=== PATIENT | male | born 1990 | race Caucasian/White ===

== ENCOUNTER 2017-08-22 21:32 | Inpatient (IN) | END 2017-08-23 18:15 | disposition home or self-care (01) | DRG 395 ==

== ENCOUNTER 2018-07-04 00:02 | Inpatient (IN) | payer OTHER ==
[2018-07-04] VITALS (27 sets, daily range): BP systolic 98–137; BP diastolic 41–70; PULSE 72–108; RESP 14–20; Ht 180.3 cm; Wt 104.5 kg
[~2018-07-04] VITALS: Ht 180.3 cm; Wt 104.5 kg
[~2018-07-04 00:02] MED LIST: AMOX1TAB10 PO; DICY10CA40 PO; HYDR-4011 PO; ONDA4SOL2 PO
[2018-07-04] MEDS ORDERED: SOD CHLORIDE 0.9% 1,000 ML IV STA (00:44)
[2018-07-04] MEDS ORDERED: ONDANSETRON 4 MG INJ IV STA (00:44)
[2018-07-04] MEDS ORDERED: morphine 4 MG/ML VIAL IV STA (00:44)
[2018-07-04] MEDS ORDERED: SOD CHLORIDE 0.9% 1,000 ML IV SCH (02:04)
--- NOTE | 2018-07-04 02:22 | ERD ---
ER Documentation Chief Complaint Chief Complaint Lower R AP X 12 hrs HPI This is a 27-year-old male who presents to the emergency room for evaluation of abdominal pain. The patient localizes the abdominal pain to the right lower margarita drant and states that is been present for approximately 8 hours. He describes it as a sharp pain associated with mild nausea and 2 episodes of nonbilious, nonbloody vomiting. The patient states that he was diagnosed with appendicitis in August 2017 and was admitted to the hospital however he states he was treated "medically" and did not have surgery. The patient came to the ER today for evaluation of his symptoms and does state it feels similar to when he was here in August ROS All systems reviewed and are negative except as per history of present illness. Medications Home Meds Active Scripts Ondansetron HCl (Zofran) 4 Mg/5 Ml Solution, 4 MG PO Q6 PRN for NAUSEA, #30 Prov:REYES SALCIDO 08/23/17 Amoxicillin/Potassium Clav (Amox-Clav 875-125 mg Tablet) 875-125 mg Tab, 1 TAB PO BID, #20 TAB Prov:REYES SALCIDO 08/23/17 Hydrocodone/Acetaminophen ([place] 5-325 Tablet) 1 Each Tablet, 1 EACH PO Q4 PRN for PAIN, #20 TAB Prov:REYES SALCIDO 08/23/17 Dicyclomine HCl (Dicyclomine HCl) 10 Mg Capsule, 10 MG PO QID, #20 CAP Prov:OLY AMEZCUA 04/26/15 Allergies Allergies: Coded Allergies: No Known Allergy (Unverified , 04/26/15) PMhx/Soc Medical and Surgical Hx: pt denies Medical Hx, pt denies Surgical Hx Anesthesia Reaction: No Hx Neurological Disorder: No Hx Respiratory Disorders: No Hx Cardiac Disorders: No Hx Psychiatric Problems: No Hx Alcohol Use: Yes (occassional) Hx Substance Use: No Hx Tobacco Use: No Smoking Status: Never smoker Physical Exam Vitals Vital Signs Date Temp Pulse Resp B/P (MAP) Pulse Ox O2 O2 Flow FiO2 Time Delivery Rate 07/04/18 98.9 96 18 136/78 100 Room Air 00:59 (97) 07/04/18 100.3 109 18 142/80 96 00:09 (100) Physical Exam INITIAL VITAL SIGNS: Reviewed by me GENERAL: The patient is well developed and appropriate for usual state of health in no apparent distress HEENT: Pupils equal, round, and reactive to light. EOMI. There is no scleral icterus. NECK: C-spine is soft and supple, there is no meningismus. There is no cervical lymphadenopathy. LUNGS: Clear to auscultation bilaterally. There are no rales, wheezes or rhonchi. HEART: Regular rate and rhythm, no murmurs, clicks, rubs or gallops. ABDOMEN: Positive McBurney point tenderness, guarding in the right lower q uadrant, positive Rovsing sign, bowel sounds in all 4 quadrants EXTREMITIES: There is no peripheral cyanosis or edema. No focal swelling or erythema. NEUROLOGICAL: The patient moves all four extremities with 5/5 strength. Cranial nerves II - XII are intact. Normal gait. Alert and oriented SKIN: There is no apparent rash or petechiae. HEME/LYMPHATIC: There is no evidence of excessive bruising or lymphedema. PSYCHIATRIC: The patient does not appear anxious or depressed. Result Diagram: 07/04/18 0055 07/04/18 0055 Results 24 hrs Laboratory Tests Test 07/04/18 00:55 White Blood Count 15.5 10^3/ul Red Blood Count 5.58 10^6/ul Hemoglobin 16.1 g/dl Hematocrit 47.5 % Mean Corpuscular Volume 85.1 fl Mean Corpuscular Hemoglobin 28.9 pg Mean Corpuscular Hemoglobin Concent 33.9 g/dl Red Cell Distribution Width 12.1 % Platelet Count 292 10^3/UL Mean Platelet Volume 10.4 fl Immature Granulocytes % 0.800 % Neutrophils % 74.5 % Lymphocytes % 16.2 % Monocytes % 6.3 % Eosinophils % 1.7 % Basophils % 0.5 % Nucleated Red Blood Cells % 0.0 /100WBC Immature Granulocytes # 0.130 10^3/ul Neutrophils # 11.5 10^3/ul Lymphocytes # 2.5 10^3/ul Monocytes # 1.0 10^3/ul Eosinophils # 0.3 10^3/ul Basophils # 0.1 10^3/ul Nucleated Red Blood Cells # 0.0 10^3/ul Urine Color YELLOW Urine Clarity CLEAR Urine pH 5.0 Urine Specific [place] 1.024 Urine Ketones NEGATIVE mg/dL Urine Nitrite NEGATIVE mg/dL Urine Bilirubin NEGATIVE mg/dL Urine Urobilinogen NEGATIVE mg/dL Urine Leukocyte Esterase NEGATIVE [place]/ul Urine Hemoglobin NEGATIVE mg/dL Urine Glucose NEGATIVE mg/dL Urine Total Protein NEGATIVE mg/dl Sodium Level 142 mmol/L Potassium Level 4.2 mmol/L Chloride Level 103 mmol/L Carbon Dioxide Level 24 mmol/L Anion Gap 15 Blood Urea Nitrogen 16 mg/dl Creatinine 1.06 mg/dl Est Glomerular Filtrat Rate mL/min > 60 mL/min Glucose Level 98 mg/dl Lactic Acid Level 2.0 mmol/L Calcium Level 10.0 mg/dl Total Bilirubin 0.4 mg/dl Direct Bilirubin 0.00 mg/dl Indirect Bilirubin 0.4 mg/dl Aspartate Amino Transf (AST/SGOT) 45 IU/L Alanine Aminotransferase (ALT/SGPT) 105 IU/L Alkaline Phosphatase 64 IU/L Total Protein 8.4 g/dl Albumin 4.9 g/dl Globulin 3.50 g/dl Albumin/Globulin Ratio 1.40 Lipase 126 U/L Current Medications Medications Dose Sig/Jaimie Start Time Status Last (Trade) Ordered Route PRN Stop Time Admin Dose Reason Admin Sodium 1,000 ml @ Q1H STAT 07/04/18 DC 07/04/18 Chloride 1,000 mls/hr IV 00:44 00:57 07/04/18 01:43 Morphine 4 mg ONCE STAT 07/04/18 DC 07/04/18 Sulfate IV 00:44 00:57 (morphine) 07/04/18 00:45 Ondansetron 4 mg ONCE STAT 07/04/18 DC 07/04/18 HCl (Zofran IV 00:44 00:57 Inj) 07/04/18 00:45 Sodium 1,000 ml @ [id number] IV 07/04/18 Chloride 80 mls/hr 02:04 07/04/18 14:33 Ondansetron 4 mg BRIDGE ORDER 07/04/18 HCl (Zofran PRN IV 02:30 Inj) NAUSEA/VOMITI 07/05/18 02:29 NG 650 mg ER BRIDGE 07/04/18 Acetaminophen PRN PO 02:30 (Tylenol .MILD PAIN 07/05/18 02:29 Tab) 1-3 OR TEMP Sodium 1,000 ml @ Q10H IV 07/04/18 Chloride 100 mls/hr 02:01 IV Flush 3 ml PER 07/04/18 (NS 3 ml) PROTOCOL IV 02:30 Ondansetron 4 mg Q6H PRN 07/04/18 HCl (Zofran IV 02:30 Inj) NAUSEA/VOMITI NG 650 mg Q6H PRN 07/04/18 Acetaminophen PO .PAIN 1-3 02:30 (Tylenol OR TEMP Tab) Morphine 2 mg Q4H PRN 07/04/18 Sulfate IV .SEVERE 02:30 (morphine) PAIN 7-10 Docusate 100 mg Q12H PRN 07/04/18 Sodium PO 02:30 (Colace) .CONSTIPATION Bisacodyl 5 mg DAILY PRN 07/04/18 (Dulcolax) PO 02:30 .CONSTIPATION Piperacillin 100 ml @ Q6 IVPB 07/04/18 Sod/ 200 mls/hr 02:15 Tazobactam Sod Procedures/MDM CT abdomen pelvis without: 1. Diffusely thickened appendix measuring up to 10 mm with trace periappendiceal inflammatory changes consistent with early acute appendicitis. 2. Minimal colonic diverticulosis. This is a 27-year-old male who presents to the ER for evaluation of abdominal pain. On my exam the patient did have tenderness to palpation in the right lower quadrant and a positive Rovsing sign. The patient was diagnosed with appendicitis in August however he did not have surgery. He presents today for similar pain and I did obtain lab work which shows a leukocytosis. CT of the abdomen and pelvis does demonstrate early acute appendicitis. The patient was started on Zosyn in the emergency room. I have contacted our general surgeon project economist Dr. Mtz who agrees to evaluate this patient on the floor. This patient is n.p.o. at this time, his pain is controlled and he will be admitted to our panel physician Dr. Ross. The patient is stable for [facility] floor, and is hemodynamically stable at this time Departure Diagnosis: Primary Impression: Acute appendicitis Additional Impressions: Abdominal pain Vomiting Condition: Stable CYDNEY AQUINO DO Jul 04, 2018 02:22
[2018-07-04] MEDS ORDERED: DOCUSATE SODIUM 100 MG CAP PO PRN (02:30)
[2018-07-04] MEDS ORDERED: BISACODYL (EC) 5 MG TAB PO PRN (02:30)
[2018-07-04] MEDS ORDERED: morphine 2 MG INJ IV PRN ×2 (02:30→06:30)
[2018-07-04] MEDS ORDERED: NACL 0.9% 3 ML SYG IV SCH (02:30)
[2018-07-04] MEDS ORDERED: ONDANSETRON 4 MG INJ IV PRN ×4 (02:30→07:00)
[2018-07-04] MEDS: PIPER-TAZO 3.375 GM IV (PMX) 100 ML IVPB SCH ×4 (02:30→17:43)
[2018-07-04] MEDS ORDERED: ACETAMINOPHEN 325 MG TAB PO PRN ×2 (02:30)
[2018-07-04] MEDS: SOD CHLORIDE 0.9% 1,000 ML IV SCH ×3 (02:36→14:47)
[2018-07-04] MEDS: morphine 4 MG/ML VIAL IV PRN ×2 (04:38→09:20)
[2018-07-04] MEDS ORDERED: BUPIVACAINE 0.5%/EPI (SDV) 30 ML INJ ONE (05:05)
--- NOTE | 2018-07-04 05:10 | NUR ---
New admission Patient with Dx Acute appendicitis was taken now to surgery. VS stable in the normal range; consent signed, pain medication given.
--- NOTE | 2018-07-04 05:18 | PREAC ---
Date/Time of Note Date/Time of Note DATE: 07/04/18 TIME: 05:15 Anesthesia Eval and Record Evaluation Time Pre-Procedure Interview DATE: 07/04/18 TIME: 05:15 Age 27 Sex male NPO: 8 hrs Preoperative diagnosis ac appy Planned procedure lap appy Past Medical History Past Medical History: Includes GI: Obesity Surgery & Anesthesia Issues No known issue Meds Anticoagulation: No Beta Dina within 24 hr: No Reason Beta Dina not given: Pt. not on B-Dina Discontinued Scripts Ondansetron HCl (Zofran) 4 Mg/5 Ml Solution, 4 MG PO Q6 PRN for NAUSEA, #30 Prov:REYES SALCIDO 08/23/17 Amoxicillin/Potassium Clav (Amox-Clav 875-125 mg Tablet) 875-125 mg Tab, 1 TAB PO BID, #20 TAB Prov:REYES SALCIDO 08/23/17 Hydrocodone/Acetaminophen ([place] 5-325 Tablet) 1 Each Tablet, 1 EACH PO Q4 PRN for PAIN, #20 TAB Prov:REYES SALCIDO 08/23/17 Dicyclomine HCl (Dicyclomine HCl) 10 Mg Capsule, 10 MG PO QID, #20 CAP Prov:OLY AMEZCUA 04/26/15 Current Medications Sodium Chloride 1,000 ml @ 80 mls/hr [id number] IV Last administered on 07/04/18at 04:15; Admin Dose 80 MLS/HR; Start 07/04/18 at 02:04; Stop 07/04/18 at 14:33 Ondansetron HCl (Zofran Inj) 4 mg BRIDGE ORDER PRN IV NAUSEA/VOMITING; Start 07/04/18 at 02:30; Stop 07/05/18 at 02:29 Acetaminophen (Tylenol Tab) 650 mg ER BRIDGE PRN PO .MILD PAIN 1-3 OR TEMP; Start 07/04/18 at 02:30; Stop 07/05/18 at 02:29 Sodium Chloride 1,000 ml @ 100 mls/hr Q10H IV Last administered on 07/04/18at 02:36; Admin Dose 100 MLS/HR; Start 07/04/18 at 02:01 IV Flush (NS 3 ml) 3 ml PER PROTOCOL IV ; Start 07/04/18 at 02:30 Ondansetron HCl (Zofran Inj) 4 mg Q6H PRN IV NAUSEA/VOMITING; Start 07/04/18 at 02:30 Acetaminophen (Tylenol Tab) 650 mg Q6H PRN PO .PAIN 1-3 OR TEMP; Start 07/04/18 at 02:30 Docusate Sodium (Colace) 100 mg Q12H PRN PO .CONSTIPATION; Start 07/04/18 at 02:30 Bisacodyl (Dulcolax) 5 mg DAILY PRN PO .CONSTIPATION; Start 07/04/18 at 02:30 Piperacillin Sod/ Tazobactam Sod 100 ml @ 200 mls/hr Q6 IVPB Last administered on 07/04/18at 02:30; Admin Dose 200 MLS/HR; Start 07/04/18 at 02:15 Morphine Sulfate (morphine) 4 mg Q4H PRN IV SEVERE PAIN 7-10 Last administered on 07/04/18at 04:38; Admin Dose 4 MG; Start 07/04/18 at 04:21 Meds reviewed: Yes Allergies Coded Allergies: No Known Allergy (Unverified , 07/04/18) Allergies Reviewed: Yes Labs/Studies Labs Reviewed: Reviewed by anesthesiologist Result Diagram: 07/04/18 0055 07/04/185 Laboratory Tests 07/04/18 00:55 test: N/A Pre-procedure Exam Last vitals Vital Signs Date Temp Pulse Resp B/P (MAP) Pulse Ox O2 O2 Flow FiO2 Time Delivery Rate 07/04/18 97.8 72 18 120/70 99 Room Air 03:48 (87) Airway: Adequate mouth opening Mallampati: Mallampati I Teeth: Normal Lung: Normal Heart: Normal ASA Physical Status ASA physical status: 2 Emergency: E Planned Anesthetic General/MAC: ETT Pre-operative Attestations Prior to commencing anesthesia and surgery, the patient was re-evaluated, there was verification of: *The patient's identity *The results of appropriate recent lab work and preoperative vital signs *The above evaluation not changing prior to induction *Anesthetic plan, risk benefits, alternative and complications discussed with patient/family; questions answered; patient/family understands, accepts and wishes to proceed. TANIYA MARTINEZ MD Jul 04, 2018 05:18
--- NOTE | 2018-07-04 05:27 | CONS ---
Assessment/Plan Assessment/Plan Assessment/Plan (Daily) Acute appendicitis Plan: Laparoscopic appendectomy, possible open. I have discussed the procedure, outcomes, expectations, alternatives and risks in detail with the patient who has an excellent understanding of the nature of his illness and agrees to the proposed plan of therapy as outlined. Consultation Date/Type/Reason Admit Date/Time Jul 04, 2018 at 02:05 Date of Consultation: Jul 04, 2018 Type of Consult General surgery Reason for Consultation Acute appendicitis Date/Time of Note DATE: 07/04/18 TIME: 05:24 Hx of Present Illness The patient is an otherwise healthy 27-year-old gentleman who presents to the emergency room with abdominal pain which intensified in severity than localized to the right lower quadrant. In the emergency room he was noted to have a tender right lower quadrant, an elevated white blood cell count, and a CT compatible with acute appendicitis. The patient has had no systemic symptoms or fevers or chills. Of note is the fact that the patient was hospitalized in August 2017 with similar symptoms which resolved without intervention. Constitutional: no complaints Eyes: no complaints ENT: no complaints Respiratory: no complaints Cardiovascular: no complaints Gastrointestinal: pain Genitourinary: no complaints Musculoskeletal: no complaints Endocrine: no complaints Lymphatic: no complaints Past Medical History Medical History: no pertinent history Home Meds Discontinued Scripts Ondansetron HCl (Zofran) 4 Mg/5 Ml Solution, 4 MG PO Q6 PRN for NAUSEA, #30 Prov:REYES SALCIDO 08/23/17 Amoxicillin/Potassium Clav (Amox-Clav 875-125 mg Tablet) 875-125 mg Tab, 1 TAB PO BID, #20 TAB Prov:REYES SALCIDO 08/23/17 Hydrocodone/Acetaminophen ([place] 5-325 Tablet) 1 Each Tablet, 1 EACH PO Q4 PRN for PAIN, #20 TAB Prov:REYES SALCIDO 08/23/17 Dicyclomine HCl (Dicyclomine HCl) 10 Mg Capsule, 10 MG PO QID, #20 CAP Prov:OLY AMEZCUA 04/26/15 Medications Current Medications Sodium Chloride 1,000 ml @ 80 mls/hr [id number] IV Last administered on 07/04/18at 04:15; Admin Dose 80 MLS/HR; Start 07/04/18 at 02:04; Stop 07/04/18 at 14:33 Ondansetron HCl (Zofran Inj) 4 mg BRIDGE ORDER PRN IV NAUSEA/VOMITING; Start 07/04/18 at 02:30; Stop 07/05/18 at 02:29 Acetaminophen (Tylenol Tab) 650 mg ER BRIDGE PRN PO .MILD PAIN 1-3 OR TEMP; Start 07/04/18 at 02:30; Stop 07/05/18 at 02:29 Sodium Chloride 1,000 ml @ 100 mls/hr Q10H IV Last administered on 07/04/18at 02:36; Admin Dose 100 MLS/HR; Start 07/04/18 at 02:01 IV Flush (NS 3 ml) 3 ml PER PROTOCOL IV ; Start 07/04/18 at 02:30 Ondansetron HCl (Zofran Inj) 4 mg Q6H PRN IV NAUSEA/VOMITING; Start 07/04/18 at 02:30 Acetaminophen (Tylenol Tab) 650 mg Q6H PRN PO .PAIN 1-3 OR TEMP; Start 07/04/18 at 02:30 Docusate Sodium (Colace) 100 mg Q12H PRN PO .CONSTIPATION; Start 07/04/18 at 02:30 Bisacodyl (Dulcolax) 5 mg DAILY PRN PO .CONSTIPATION; Start 07/04/18 at 02:30 Piperacillin Sod/ Tazobactam Sod 100 ml @ 200 mls/hr Q6 IVPB Last administered on 07/04/18at 02:30; Admin Dose 200 MLS/HR; Start 07/04/18 at 02:15 Morphine Sulfate (morphine) 4 mg Q4H PRN IV SEVERE PAIN 7-10 Last administered on 07/04/18at 04:38; Admin Dose 4 MG; Start 07/04/18 at 04:21 Hydromorphone HCl (Dilaudid) 0.4 mg PACU PRN IV MOD PAIN 4-6; Start 07/04/18 at 05:30; Status UNV Ketorolac Tromethamine (Toradol) 15 mg PACU ORDER PRN IV FOR PAIN AFTER IV NARCOTIC MED; Start 07/04/18 at 05:30; Stop 07/07/18 at 05:29; Status UNV Ondansetron HCl (Zofran Inj) 4 mg PACU ORDER PRN IV NAUSEA/VOMITING; Start 07/04/18 at 05:30; Status UNV Labetalol HCl (Labetalol) 5 mg PACU ORDER PRN IV HIGH BLOOD PRESSURE; Start 07/04/18 at 05:30; Status UNV Hydralazine HCl (Apresoline) 5 mg PACU ORDER PRN IV HIGH BLOOD PRESSURE; Start 07/04/18 at 05:30; Status UNV Meperidine HCl (Demerol) 25 mg PACU ORDER PRN IV .RIGORS; Start 07/04/18 at 05:30; Status UNV Diphenhydramine HCl (Benadryl) 25 mg PACU ORDER PRN IV .PRURITUS; Start 07/04/18 at 05:30; Status UNV Allergies: Coded Allergies: No Known Allergy (Unverified , 07/04/18) Past Surgical History Past Surgical Hx: no surgical history, other Family History Significant Family History: no pertinent family hx Social History Smoking Status: Never smoker Exam/Review of Systems Exam Vitals Vital Signs Date Temp Pulse Resp B/P (MAP) Pulse Ox O2 O2 Flow FiO2 Time Delivery Rate 07/04/18 97.8 72 18 120/70 99 Room Air 03:48 (87) Intake and Output 07/03/18 07/03/18 07/04/18 1515:00 23:00 07:00 IntakeIntake Total 350 ml OutputOutput Total 200 ml BalanceBalance 150 ml Constitutional: alert, oriented Psych: no complaints Head: normocephalic ENMT: nl external ears & nose Neck: supple Respiratory: clear to auscultation Cardiovascular: regular rate and rhythm Gastrointestinal: soft Musculoskeletal: nl extremities to inspection Extremities: normal pulses Neurological: [employer] II-XII intact Skin: nl turgor Results Result Diagram: 07/04/185 07/04/18 0055 Results 24hrs Laboratory Tests Test 07/04/18 00:55 07/04/18 04:40 White Blood Count 15.5 #H Red Blood Count 5.58 Hemoglobin 16.1 Hematocrit 47.5 Mean Corpuscular Volume 85.1 Mean Corpuscular Hemoglobin 28.9 L Mean Corpuscular Hemoglobin Concent 33.9 Red Cell Distribution Width 12.1 Platelet Count 292 Mean Platelet Volume 10.4 Immature Granulocytes % 0.800 H Neutrophils % 74.5 Lymphocytes % 16.2 Monocytes % 6.3 Eosinophils % 1.7 Basophils % 0.5 Nucleated Red Blood Cells % 0.0 Immature Granulocytes # 0.130 H Neutrophils # 11.5 H Lymphocytes # 2.5 Monocytes # 1.0 H Eosinophils # 0.3 Basophils # 0.1 Nucleated Red Blood Cells # 0.0 Urine Color YELLOW Urine Clarity CLEAR Urine pH 5.0 Urine Specific [place] 1.024 Urine Ketones NEGATIVE Urine Nitrite NEGATIVE Urine Bilirubin NEGATIVE Urine Urobilinogen NEGATIVE Urine Leukocyte Esterase NEGATIVE Urine Hemoglobin NEGATIVE Urine Glucose NEGATIVE Urine Total Protein NEGATIVE Sodium Level 142 Potassium Level 4.2 Chloride Level 103 Carbon Dioxide Level 24 Anion Gap 15 H Blood Urea Nitrogen 16 Creatinine 1.06 Est Glomerular Filtrat Rate mL/min > 60 Glucose Level 98 Lactic Acid Level 2.0 Calcium Level 10.0 Total Bilirubin 0.4 Direct Bilirubin 0.00 Indirect Bilirubin 0.4 Aspartate Amino Transf (AST/SGOT) 45 Alanine Aminotransferase (ALT/SGPT) 105 H Alkaline Phosphatase 64 Total Protein 8.4 H Albumin 4.9 Globulin 3.50 H Albumin/Globulin Ratio 1.40 Lipase 126 Prothrombin Time 12.8 Prothrombin Time Ratio 1.0 INR International Normalized Ratio 0.95 Activated Partial Thromboplast Time 26.6 Medications Medication Current Medications Sodium Chloride 1,000 ml @ 80 mls/hr [id number] IV Last administered on 07/04/18at 04:15; Admin Dose 80 MLS/HR; Start 07/04/18 at 02:04; Stop 07/04/18 at 14:33 Ondansetron HCl (Zofran Inj) 4 mg BRIDGE ORDER PRN IV NAUSEA/VOMITING; Start 07/04/18 at 02:30; Stop 07/05/18 at 02:29 Acetaminophen (Tylenol Tab) 650 mg ER BRIDGE PRN PO .MILD PAIN 1-3 OR TEMP; Start 07/04/18 at 02:30; Stop 07/05/18 at 02:29 Sodium Chloride 1,000 ml @ 100 mls/hr Q10H IV Last administered on 07/04/18at 02:36; Admin Dose 100 MLS/HR; Start 07/04/18 at 02:01 IV Flush (NS 3 ml) 3 ml PER PROTOCOL IV ; Start 07/04/18 at 02:30 Ondansetron HCl (Zofran Inj) 4 mg Q6H PRN IV NAUSEA/VOMITING; Start 07/04/18 at 02:30 Acetaminophen (Tylenol Tab) 650 mg Q6H PRN PO .PAIN 1-3 OR TEMP; Start 07/04/18 at 02:30 Docusate Sodium (Colace) 100 mg Q12H PRN PO .CONSTIPATION; Start 07/04/18 at 02:30 Bisacodyl (Dulcolax) 5 mg DAILY PRN PO .CONSTIPATION; Start 07/04/18 at 02:30 Piperacillin Sod/ Tazobactam Sod 100 ml @ 200 mls/hr Q6 IVPB Last administered on 07/04/18at 02:30; Admin Dose 200 MLS/HR; Start 07/04/18 at 02:15 Morphine Sulfate (morphine) 4 mg Q4H PRN IV SEVERE PAIN 7-10 Last administered on 07/04/18at 04:38; Admin Dose 4 MG; Start 07/04/18 at 04:21 Hydromorphone HCl (Dilaudid) 0.4 mg PACU PRN IV MOD PAIN 4-6; Start 07/04/18 at 05:30; Status UNV Ketorolac Tromethamine (Toradol) 15 mg PACU ORDER PRN IV FOR PAIN AFTER IV NARCOTIC MED; Start 07/04/18 at 05:30; Stop 07/07/18 at 05:29; Status UNV Ondansetron HCl (Zofran Inj) 4 mg PACU ORDER PRN IV NAUSEA/VOMITING; Start 07/04/18 at 05:30; Status UNV Labetalol HCl (Labetalol) 5 mg PACU ORDER PRN IV HIGH BLOOD PRESSURE; Start 07/04/18 at 05:30; Status UNV Hydralazine HCl (Apresoline) 5 mg PACU ORDER PRN IV HIGH BLOOD PRESSURE; Start 07/04/18 at 05:30; Status UNV Meperidine HCl (Demerol) 25 mg PACU ORDER PRN IV .RIGORS; Start 07/04/18 at 05:30; Status UNV Diphenhydramine HCl (Benadryl) 25 mg PACU ORDER PRN IV .PRURITUS; Start 07/04/18 at 05:30; Status UNV STACY ESPINO MD Jul 04, 2018 05:27
[2018-07-04] MEDS ORDERED: HYDROmorphONE 2 MG/ML SYG ONE (05:28)
[2018-07-04] MEDS ORDERED: ROCURONIUM 50 MG INJ ONE (05:28)
[2018-07-04] MEDS ORDERED: SUCCINYLCHOLINE CHLORIDE 100 MG/5 ML SYG IV ONE (05:28)
[2018-07-04] MEDS ORDERED: PROPOFOL 20 ML ONE (05:28)
[2018-07-04] MEDS ORDERED: hydrALAzine 20 MG INJ IV PRN (05:30)
[2018-07-04] MEDS ORDERED: DIPHENHYDRAMINE 50 MG INJ IV PRN (05:30)
[2018-07-04] MEDS ORDERED: KETOROLAC 15 MG INJ IV PRN (05:30)
[2018-07-04] MEDS ORDERED: LABETALOL HCL 20MG INJ IV PRN (05:30)
[2018-07-04] MEDS ORDERED: MEPERIDINE 25 MG INJ IV PRN (05:30)
--- NOTE | 2018-07-04 05:30 | HP ---
Date/Time of Note Date/Time of Note DATE: 07/04/18 TIME: 05:26 Assessment/Plan VTE Prophylaxis SCD applied (from Nsg): Yes Pharmacological prophylaxis: NA/contraindicated Pharm contraindication: low risk/ambulating Lines/Catheters IV Catheter Type (from Nrsg): Peripheral IV Assessment/Plan Hospital Course This is a 27-year-old male being admitted to the [facility] floor for: #1 suspect early acute appendicitis: Patient did present with a temperature of 100.3 along with right lower quadrant pain and CT imaging suggestive of likely early appendicitis. Patient at the current time is hesitant in terms of surgery and would like to discuss the case with the surgeon prior to deciding to go to surgery. I did discuss the risks and benefits of going with the surgery or not going with. At the current time we will keep the patient n.p.o. except meds, pain management, Zosyn IV prophylaxis. Zofran for nausea. Dr. Mtz of general surgery has already been consulted by the ED, await further recommendations #2 obesity: We will check hemoglobin A1c, lipid panel, TSH, encourage diet and exercise mechanism #3 DVT GI prophylaxis: SCDs, no GI prophylaxis indicated Further treatment strategy will be implemented as per the clinical course. Result Diagram: 07/04/18 0055 07/04/18 005 Results 24hrs Laboratory Tests Test 07/04/18 00:55 07/04/18 04:40 White Blood Count 15.5 #H Red Blood Count 5.58 Hemoglobin 16.1 Hematocrit 47.5 Mean Corpuscular Volume 85.1 Mean Corpuscular Hemoglobin 28.9 L Mean Corpuscular Hemoglobin Concent 33.9 Red Cell Distribution Width 12.1 Platelet Count 292 Mean Platelet Volume 10.4 Immature Granulocytes % 0.800 H Neutrophils % 74.5 Lymphocytes % 16.2 Monocytes % 6.3 Eosinophils % 1.7 Basophils % 0.5 Nucleated Red Blood Cells % 0.0 Immature Granulocytes # 0.130 H Neutrophils # 11.5 H Lymphocytes # 2.5 Monocytes # 1.0 H Eosinophils # 0.3 Basophils # 0.1 Nucleated Red Blood Cells # 0.0 Urine Color YELLOW Urine Clarity CLEAR Urine pH 5.0 Urine Specific [place] 1.024 Urine Ketones NEGATIVE Urine Nitrite NEGATIVE Urine Bilirubin NEGATIVE Urine Urobilinogen NEGATIVE Urine Leukocyte Esterase NEGATIVE Urine Hemoglobin NEGATIVE Urine Glucose NEGATIVE Urine Total Protein NEGATIVE Sodium Level 142 Potassium Level 4.2 Chloride Level 103 Carbon Dioxide Level 24 Anion Gap 15 H Blood Urea Nitrogen 16 Creatinine 1.06 Est Glomerular Filtrat Rate mL/min > 60 Glucose Level 98 Lactic Acid Level 2.0 Calcium Level 10.0 Total Bilirubin 0.4 Direct Bilirubin 0.00 Indirect Bilirubin 0.4 Aspartate Amino Transf (AST/SGOT) 45 Alanine Aminotransferase (ALT/SGPT) 105 H Alkaline Phosphatase 64 Total Protein 8.4 H Albumin 4.9 Globulin 3.50 H Albumin/Globulin Ratio 1.40 Lipase 126 Prothrombin Time 12.8 Prothrombin Time Ratio 1.0 INR International Normalized Ratio 0.95 Activated Partial Thromboplast Time 26.6 HPI/ROS Admit Date/Time Admit Date/Time Jul 04, 2018 at 02:05 Hx of Present Illness Chief complaint: Abdominal pain This is a 27-year-old male who presents to the emergency room for evaluation of abdominal pain. The patient localizes the abdominal pain to the right lower quadrant and states that is been present for approximately 8 hours. He describes it as a sharp pain associated with mild nausea and 2 episodes of nonbilious, nonbloody vomiting. The patient states that he was diagnosed with appendicitis in August 2017 and was admitted to the hospital however he states he was treated "medically" and did not have surgery. Patient at the current time does report abdominal pain of the right lower quadrant still despite receiving medications. He does appear anxious in regards to surgery. And he would like to speak with the surgeon prior to going through surgery. Allergies: NKDA Medications: None ROS Const: As per HPI Eyes : No pain discharge or redness or change in visual acuity ENT: No pain, sore throat, congestion, congestion, dysphagia or discharge Respiratory: No shortness of breath, cough, sputum, wheezing, or pleuritic pain Cardiovascular: No chest pain, palpitation, PND, or edema GI : n as per HPI Genitourinary: No dysuria, hematuria, flank pain , discharge or CVA tenderness Musculoskeletal: No joint pain, back pain, neck pain, restricted range of motion in neck or joints Skin: No rash, bruising or hives Neuro: No headache, dizziness, syncope, seizure, focal weakness Endocrine: No polyuria, polydipsia, temperature intolerance Psych: No hallucination, depression, anxiety or suicidal ideation PMH/Family/Social Past Medical History Medical History: no pertinent history Medications Current Medications Sodium Chloride 1,000 ml @ 80 mls/hr [id number] IV Last administered on 07/04/18at 04:15; Admin Dose 80 MLS/HR; Start 07/04/18 at 02:04; Stop 07/04/18 at 14:33 Ondansetron HCl (Zofran Inj) 4 mg BRIDGE ORDER PRN IV NAUSEA/VOMITING; Start 07/04/18 at 02:30; Stop 07/05/18 at 02:29 Acetaminophen (Tylenol Tab) 650 mg ER BRIDGE PRN PO .MILD PAIN 1-3 OR TEMP; Start 07/04/18 at 02:30; Stop 07/05/18 at 02:29 Sodium Chloride 1,000 ml @ 100 mls/hr Q10H IV Last administered on 07/04/18at 02:36; Admin Dose 100 MLS/HR; Start 07/04/18 at 02:01 IV Flush (NS 3 ml) 3 ml PER PROTOCOL IV ; Start 07/04/18 at 02:30 Ondansetron HCl (Zofran Inj) 4 mg Q6H PRN IV NAUSEA/VOMITING; Start 07/04/18 at 02:30 Acetaminophen (Tylenol Tab) 650 mg Q6H PRN PO .PAIN 1-3 OR TEMP; Start 07/04/18 at 02:30 Docusate Sodium (Colace) 100 mg Q12H PRN PO .CONSTIPATION; Start 07/04/18 at 02:30 Bisacodyl (Dulcolax) 5 mg DAILY PRN PO .CONSTIPATION; Start 07/04/18 at 02:30 Piperacillin Sod/ Tazobactam Sod 100 ml @ 200 mls/hr Q6 IVPB Last administered on 07/04/18at 02:30; Admin Dose 200 MLS/HR; Start 07/04/18 at 02:15 Morphine Sulfate (morphine) 4 mg Q4H PRN IV SEVERE PAIN 7-10 Last administered on 07/04/18at 04:38; Admin Dose 4 MG; Start 07/04/18 at 04:21 Hydromorphone HCl (Dilaudid) 0.4 mg PACU PRN IV MOD PAIN 4-6; Start 07/04/18 at 05:30; Status UNV Ketorolac Tromethamine (Toradol) 15 mg PACU ORDER PRN IV FOR PAIN AFTER IV NARCOTIC MED; Start 07/04/18 at 05:30; Stop 07/07/18 at 05:29; Status UNV Ondansetron HCl (Zofran Inj) 4 mg PACU ORDER PRN IV NAUSEA/VOMITING; Start 07/04/18 at 05:30; Status UNV Labetalol HCl (Labetalol) 5 mg PACU ORDER PRN IV HIGH BLOOD PRESSURE; Start 07/04/18 at 05:30; Status UNV Hydralazine HCl (Apresoline) 5 mg PACU ORDER PRN IV HIGH BLOOD PRESSURE; Start 07/04/18 at 05:30; Status UNV Meperidine HCl (Demerol) 25 mg PACU ORDER PRN IV .RIGORS; Start 07/04/18 at 05:30; Status UNV Diphenhydramine HCl (Benadryl) 25 mg PACU ORDER PRN IV .PRURITUS; Start 07/04/18 at 05:30; Status UNV Coded Allergies: No Known Allergy (Unverified , 07/04/18) Past Surgical History Past Surgical Hx: no surgical history, other Family History Significant Family History: no pertinent family hx Social History Alcohol Use: occasionally Smoking Status: Never smoker Drug Use: none Exam/Review of Systems Vital Signs Vitals Vital Signs Date Temp Pulse Resp B/P (MAP) Pulse Ox O2 O2 Flow FiO2 Time Delivery Rate 07/04/18 97.8 72 18 120/70 99 Room Air 03:48 (87) Intake and Output 07/03/18 07/03/18 07/04/18 1515:00 23:00 07:00 IntakeIntake Total 350 ml OutputOutput Total 200 ml BalanceBalance 150 ml Exam Exam General: Patient is currently lying in bed, he does appear anxious and he is in pain HEENT: Atraumatic, normocephalic. The pupils are equal, round and reactive. Extraocular motor are intact Neck: Supple with full range of motion. No rigidity or meningismus Chest: Nontender Lungs: Clear to auscultation bilaterally no crackles rales or wheezing Heart: Normal S1-S2, Regular rhythm and rate. No murmur, S3, or S4 Abdomen: Obese, soft , tender to palpation over the right lower quadrant, positive McBurney's point tenderness, bowel sounds are present. No guarding no rebound tenderness , No masses or organomegaly. Extremities: Normal to inspection, no edema no cyanosis Neurologic: Normal mental status, speech normal, cranial nerves II through XII are intact, motor and sensory are intact, no focal weakness Additional Comments PROCEDURE: CT ABDOMEN/PELVIS WITHOUT CONTRAST CLINICAL INDICATION: 27-year-old male with right lower quadrant pain. TECHNIQUE: The study was performed utilizing a GE [employer]peed VCT 64-slice CT scanner. Direct axial sections were obtained through the abdomen and pelvis without the use of intravenous contrast material. Sagittal and coronal reformations were obtained. One or more of the following dose reduction techniques were utilized: automated exposure control, adjustment of the mA and/or kV according to patient's size and/or the use of iterative reconstruction technique. DICOM images are available. The images were reviewed on a PACS workstation. CTD/vol = 21.0 mGy; Total Exam DLP = 1463.3 mGy-cm. COMPARISON: CT abdomen/pelvis August 22, 2017. FINDINGS: There is trace bibasilar subsegmental atelectasis. There is no evidence for significant pleural effusion. The liver has a normal size and contour without focal areas of abnormal density. No intrahepatic nor extrahepatic biliary ductal dilatation is seen. The gallbladder demonstrates no wall thickening nor pericholecystic fluid. No biliary stones are evident. The pancreas is without areas of abnormal attenuation. The spleen is identified and has a normal size without abnormal density. The adrenal glands are unremarkable. The kidneys are without abnormal density. No hydroureteronephrosis nor nephroureterolithiasis is evident. The urinary bladder contains urine. There is no evidence for bowel obstruction. There is mild nonspecific submucosal fat within the ascending colon. There are small scattered diverticula within the colon without surrounding inflammatory changes. The appendix is mildly thickened measuring up to 10 mm with trace periappendiceal inflammatory changes. The prostate is not enlarged. There is no significant free fluid. The aortoiliac vessels are without aneurysmal dilatation. The osseous structures are intact. IMPRESSION: 1. Diffusely thickened appendix measuring up to 10 mm with trace periappendiceal inflammatory changes consistent with early acute appendicitis. 2. Minimal colonic diverticulosis. CALL REPORT: A call report was made to [facility] ER Dr. Aquino on July 04, 2018 at 01:55 a.m. .Hossein Squires MD, MD Date Time Electronically viewed and signed by .Hossein Squires MD, MD on 07/04/2018 01:59 .M/ CC: CYDENY AQUINO DO [id number] NIDA HALLMAN Jul 04, 2018 05:30
[2018-07-04] MEDS ORDERED: MIDAZOLAM 1 MG/ML 2 ML INJ ONE (06:24)
[2018-07-04] MEDS ORDERED: SUGAMMADEX SODIUM 200 MG/2 ML VIAL IV ONE (06:25)
--- NOTE | 2018-07-04 06:33 | NUR ---
RECEIVED PATIENT FROM OR VIA BED POST LAPAROSCOPIC APPENDECTOMY UNDER GENERAL ANESTHESIA WITH 3 SMALL LAPAROSCOPIC INCISIONS COVERED WITH LARGE BAND AID DRY AND INTACT. PATIENT AROUSABLE .PLACED ON OO2 8L VIA FACE MASK. SR .BP STABLE SAT 98%.
--- NOTE | 2018-07-04 06:42 | OPR ---
Date/Time of Note Date/Time of Note DATE: 07/04/18 TIME: 06:36 Operative Report Procedure Date: Jul 04, 2018 Preoperative Diagnosis Acute appendicitis Postoperative Diagnosis Acute appendicitis with localized peritonitis Operation/Procedure Performed Laparoscopic appendectomy Surgeon Stacy Espino MD Nanotechnologist None Anesthesia Type: general Anesthesiologist: TANIYA MARTINEZ MD Estimated Blood Loss: minimal Transfusion none Specimen Appendix and culture and sensitivity Grafts/Implants none Tubes/Drains None Complications none Pt Condition Post Procedure: stable Disposition: PACU Indications Acute appendicitis Procedure Description After satisfactory general endotracheal anesthesia was achieved, the abdomen was prepped and draped in the usual fashion. The abdomen was insufflated with carbon dioxide through an umbilical Veress needle to 15 mmHg pressure. The Veress needle was removed and the umbilical incision extended to 5 mm through which a 5 mm trocar was placed. A 5 mm 0 degree lens was placed. Laparoscopy showed an acutely inflamed intraperitoneal appendix with localized peritonitis. Under direct visualization, a 5 mm suprapubic trocar was placed as well as a 12 mm left lower quadrant trocar. The camera was then placed into the suprapubic port. A window was made in the mesoappendix through which a laparoscopic stapler was placed across the base of the cecum, closed and fired, disconnecting the appendix from the cecum. 2 more firings of the vascular stapler across the mesoappendix fully freed the appendix which was then placed intact into an Endo Catch and removed via the 12 mm port site. The appendix was cultured and submitted. Hemostasis was total and irrigant returned clear. 2 fascial sutures of 0 Vicryl were placed at the 12 mm port site with the assistance of a eliecer- close device. The abdomen was then desufflated and all trochars were removed. The fascial sutures were tied down. The skin punctures were infiltrated with 30 cc of 0.05% Marcaine with epinephrine, and closed with luz. Sponge and needle counts were reported as correct x2. STACY ESPINO MD Jul 04, 2018 06:42
--- NOTE | 2018-07-04 06:44 | PAC ---
Date/Time of Note Date/Time of Note DATE: 07/04/18 TIME: 06:44 Post-Anesthesia Notes Post-Anesthesia Note Last documented vital signs Vital Signs Date Temp Pulse Resp B/P (MAP) Pulse Ox O2 O2 Flow FiO2 Time Delivery Rate 07/04/18 97.8 72 18 120/70 99 Room Air 03:48 (87) Activity: WNL Respiratory function: WNL Cardiovascular function: WNL Mental status: Baseline Pain reasonably controlled: Yes Hydration appropriate: Yes Nausea/Vomiting absent: Yes TANIYA MARTINEZ MD Jul 04, 2018 06:44
[2018-07-04] MEDS ORDERED: DESFLURANE 15 MIN ONE (07:00)
[2018-07-04] MEDS ORDERED: OXYCODONE/ACETAMINOPHEN (5/325) TAB PO PRN (07:00)
[2018-07-04] MEDS ORDERED: CEFAZOLIN 1 GM INJ ONE (07:00)
[2018-07-04] MEDS ORDERED: morphine 4 MG/ML VIAL IV PRN (07:00)
--- NOTE | 2018-07-04 07:04 | NUR ---
PATIENT NOW AWAKE DENIES PAIN.
[2018-07-04] MEDS ORDERED: HYDROmorphONE 1 MG/5 ML IV SYRINGE IV ONE (07:09)
[2018-07-04] MEDS ORDERED: ONDANSETRON 4 MG INJ ONE (07:09)
[2018-07-04] MEDS: HYDROmorphONE 1 MG/5 ML IV SYRINGE IV PRN ×2 (07:16→07:41)
--- NOTE | 2018-07-04 07:16 | NUR ---
C/O PAIN 10/16 . DILAUDID0.4MG IV GIVEN .ZOFRAN GIVEN FOR NAUSEA PROPHYLAXIS.
[2018-07-04] MEDS ORDERED: PIPER-TAZO 3.375 GM IV (PMX) 100 ML ONE (07:22)
--- NOTE | 2018-07-04 07:41 | NUR ---
PATIENT WOKE UP AND REPORTS STILL HAVING PAIN 09/16 .DILAUDID O.4MG IV GIVEN .EXPLAINED TO PATIENT REGARDING PAIN GOAL VERBALIZE UNDERSTANDING
--- NOTE | 2018-07-04 08:05 | NUR ---
TRANSFERRED TO [facility] IN STABLE CONDITION .PAIN CONTROLLED TO 07/19. DRESSING TO LOWER ABDOMEN DRY AND INTACT .NO SIGN OF BLEEDING. REPORT GIVEN TO [facility].
--- NOTE | 2018-07-04 08:30 | NUR ---
BACK FROM PACU POST LAP APPENDECTOMY.POSITIONED COMFORTABLY IN BED.INSTRUCTED ON CLEAR LIQUIDS DIET FOR NOW AND RN WILL MONITOR TOLERANCE FROM CLEARS.PAIN WAS ASSESSED AND INCISION SITE.
[2018-07-04] MEDS: OXYCODONE/ACETAMINOPHEN (5/325) TAB PO PRN ×3 (10:42→18:58)
--- NOTE | 2018-07-04 11:14 | PN ---
Date/Time of Note Date/Time of Note DATE: 07/04/18 TIME: 11:13 Assessment/Plan VTE Prophylaxis Risk score (from Ns)>0 risk: 3 SCD applied (from Ns): Yes Pharmacological prophylaxis: NA/contraindicated Pharm contraindication: low risk/ambulating Lines/Catheters IV Catheter Type (from [facility]): Peripheral IV Assessment/Plan Hospital Course SUBJECTIVE: Status post appendectomy. Having pain on incision site. Afebrile. OBJECTIVE: Vital signs-see below PHYSICAL EXAM: Constitutional: Well-developed, adequately built, lying in bed comfortably. Psych: nl mood/affect, no complaints Head: atraumatic, normocephalic Eyes: nl conjunctiva, nl sclera ENMT: mucosa pink and moist, nl external ears & nose Neck: non-tender, supple Respiratory: clear to auscultation, normal air movement Cardiovascular: nl pulses, regular rate and rhythm Gastrointestinal: Laparoscopic incision site intact. Slight tenderness to incisional area. Otherwise abdomen soft, bowel sounds active in all 4 quadrants. Musculoskeletal/extremities: nl extremities to inspection, motor strength equal bilaterally, no focal deficit. Normal pulses,no cyanosis, no edema. Neurological: Alert oriented 3,nl speech, nl strength Skin: nl turgor ASSESSMENT/PLAN:27-year-old obese male with no past medical history admitted with acute appendicitis. 1. Acute appendicitis with localized peritonitis. -Status post lap scopic appendectomy 07/03/2018: Stable with no leukocytosis, no fevers, intact incisional area. -Postoperative management per surgery. 2. Obesity with BMI 32.1 -Weight reduction advised VT prophylaxis: Not indicated PUD prophylaxis: Not indicated CODE STATUS: Full code Diet: Per surgery Disposition: Continue current medical management. DC planning per surgery recommendations. Patient was seen in collaboration with Dr. Katz Result Diagram: 07/04/18 0055 07/04/18 005 Results 24hrs Laboratory Tests Test 07/04/18 00:55 07/04/18 04:40 White Blood Count 15.5 #H Red Blood Count 5.58 Hemoglobin 16.1 Hematocrit 47.5 Mean Corpuscular Volume 85.1 Mean Corpuscular Hemoglobin 28.9 L Mean Corpuscular Hemoglobin Concent 33.9 Red Cell Distribution Width 12.1 Platelet Count 292 Mean Platelet Volume 10.4 Immature Granulocytes % 0.800 H Neutrophils % 74.5 Lymphocytes % 16.2 Monocytes % 6.3 Eosinophils % 1.7 Basophils % 0.5 Nucleated Red Blood Cells % 0.0 Immature Granulocytes # 0.130 H Neutrophils # 11.5 H Lymphocytes # 2.5 Monocytes # 1.0 H Eosinophils # 0.3 Basophils # 0.1 Nucleated Red Blood Cells # 0.0 Urine Color YELLOW Urine Clarity CLEAR Urine pH 5.0 Urine Specific [place] 1.024 Urine Ketones NEGATIVE Urine Nitrite NEGATIVE Urine Bilirubin NEGATIVE Urine Urobilinogen NEGATIVE Urine Leukocyte Esterase NEGATIVE Urine Hemoglobin NEGATIVE Urine Glucose NEGATIVE Urine Total Protein NEGATIVE Sodium Level 142 Potassium Level 4.2 Chloride Level 103 Carbon Dioxide Level 24 Anion Gap 15 H Blood Urea Nitrogen 16 Creatinine 1.06 Est Glomerular Filtrat Rate mL/min > 60 Glucose Level 98 Lactic Acid Level 2.0 Calcium Level 10.0 Total Bilirubin 0.4 Direct Bilirubin 0.00 Indirect Bilirubin 0.4 Aspartate Amino Transf (AST/SGOT) 45 Alanine Aminotransferase (ALT/SGPT) 105 H Alkaline Phosphatase 64 Total Protein 8.4 H Albumin 4.9 Globulin 3.50 H Albumin/Globulin Ratio 1.40 Lipase 126 Prothrombin Time 12.8 Prothrombin Time Ratio 1.0 INR International Normalized Ratio 0.95 Activated Partial Thromboplast Time 26.6 Exam/Review of Systems Exam Vitals Vital Signs Date Temp Pulse Resp B/P (MAP) Pulse Ox O2 O2 Flow FiO2 Time Delivery Rate 07/04/18 98 17 101/41 96 Nasal 07:56 (61) Cannula 07/04/18 3.0 07:31 07/04/18 97.7 06:48 Intake and Output 07/03/18 07/03/18 07/04/18 1515:00 23:00 07:00 IntakeIntake Total 1450 ml OutputOutput Total 205 ml BalanceBalance 1245 ml Results Results 24hrs Laboratory Tests Test 07/04/18 00:55 07/04/18 04:40 White Blood Count 15.5 #H Red Blood Count 5.58 Hemoglobin 16.1 Hematocrit 47.5 Mean Corpuscular Volume 85.1 Mean Corpuscular Hemoglobin 28.9 L Mean Corpuscular Hemoglobin Concent 33.9 Red Cell Distribution Width 12.1 Platelet Count 292 Mean Platelet Volume 10.4 Immature Granulocytes % 0.800 H Neutrophils % 74.5 Lymphocytes % 16.2 Monocytes % 6.3 Eosinophils % 1.7 Basophils % 0.5 Nucleated Red Blood Cells % 0.0 Immature Granulocytes # 0.130 H Neutrophils # 11.5 H Lymphocytes # 2.5 Monocytes # 1.0 H Eosinophils # 0.3 Basophils # 0.1 Nucleated Red Blood Cells # 0.0 Urine Color YELLOW Urine Clarity CLEAR Urine pH 5.0 Urine Specific [place] 1.024 Urine Ketones NEGATIVE Urine Nitrite NEGATIVE Urine Bilirubin NEGATIVE Urine Urobilinogen NEGATIVE Urine Leukocyte Esterase NEGATIVE Urine Hemoglobin NEGATIVE Urine Glucose NEGATIVE Urine Total Protein NEGATIVE Sodium Level 142 Potassium Level 4.2 Chloride Level 103 Carbon Dioxide Level 24 Anion Gap 15 H Blood Urea Nitrogen 16 Creatinine 1.06 Est Glomerular Filtrat Rate mL/min > 60 Glucose Level 98 Lactic Acid Level 2.0 Calcium Level 10.0 Total Bilirubin 0.4 Direct Bilirubin 0.00 Indirect Bilirubin 0.4 Aspartate Amino Transf (AST/SGOT) 45 Alanine Aminotransferase (ALT/SGPT) 105 H Alkaline Phosphatase 64 Total Protein 8.4 H Albumin 4.9 Globulin 3.50 H Albumin/Globulin Ratio 1.40 Lipase 126 Prothrombin Time 12.8 Prothrombin Time Ratio 1.0 INR International Normalized Ratio 0.95 Activated Partial Thromboplast Time 26.6 Medications Medication Current Medications Sodium Chloride 1,000 ml @ 80 mls/hr [id number] IV Last administered on 07/04/18at 04:15; Admin Dose 80 MLS/HR; Start 07/04/18 at 02:04; Stop 07/04/18 at 14:33 Ondansetron HCl (Zofran Inj) 4 mg BRIDGE ORDER PRN IV NAUSEA/VOMITING Last administered on 07/04/18at 07:16; Admin Dose 4 MG; Start 07/04/18 at 02:30; Stop 07/05/18 at 02:29 Acetaminophen (Tylenol Tab) 650 mg ER BRIDGE PRN PO .MILD PAIN 1-3 OR TEMP; Start 07/04/18 at 02:30; Stop 07/05/18 at 02:29 Sodium Chloride 1,000 ml @ 100 mls/hr Q10H IV Last administered on 07/04/18at 02:36; Admin Dose 100 MLS/HR; Start 07/04/18 at 02:01 IV Flush (NS 3 ml) 3 ml PER PROTOCOL IV ; Start 07/04/18 at 02:30 Ondansetron HCl (Zofran Inj) 4 mg Q6H PRN IV NAUSEA/VOMITING; Start 07/04/18 at 02:30 Acetaminophen (Tylenol Tab) 650 mg Q6H PRN PO .PAIN 1-3 OR TEMP; Start 07/04/18 at 02:30 Docusate Sodium (Colace) 100 mg Q12H PRN PO .CONSTIPATION; Start 07/04/18 at 02:30 Bisacodyl (Dulcolax) 5 mg DAILY PRN PO .CONSTIPATION; Start 07/04/18 at 02:30 Piperacillin Sod/ Tazobactam Sod 100 ml @ 200 mls/hr Q6 IVPB Last administered on 07/04/18at 07:22; Admin Dose 200 MLS/HR; Start 07/04/18 at 02:15 Morphine Sulfate (morphine) 4 mg Q4H PRN IV SEVERE PAIN 7-10 Last administered on 07/04/18at 09:20; Admin Dose 4 MG; Start 07/04/18 at 04:21 Oxycodone/ Acetaminophen (Percocet (5/ 325)) 1 tab Q4H PRN PO .MILD PAIN (1-3); Start 07/04/18 at 07:00 Oxycodone/ Acetaminophen (Percocet (5/ 325)) 2 tab Q4H PRN PO .MODERATE PAIN (4-6) Last administered on 07/04/18at 10:42; Admin Dose 2 TAB; Start 07/04/18 at 07:00 Morphine Sulfate (morphine) 2 mg ONCE PRN IV .SEVERE PAIN 7-10; Start 07/04/18 at 07:00 Ondansetron HCl (Zofran Inj) 4 mg Q6H PRN IV NAUSEA/VOMITING; Start 07/04/18 at 07:00 NOREEN ZAPATA NP Jul 04, 2018 11:14
--- NOTE | 2018-07-04 16:37 | NUR ---
PATIENT AA ,ORIENTED X 4 DAY OF SURGERY TODAY POST LAP APPENDECTOMY.PAIN IS MANAGED WITH PERCOCET WITH ADEQUATE PAIN CONTROL.TOLERATING CLEAR LIQUIDS DIET.PLAN IS TO CONTINUE IVF INFUSION AND IV ATB.
[2018-07-05] MEDS: OXYCODONE/ACETAMINOPHEN (5/325) TAB PO PRN ×2 (00:26→07:37)
[2018-07-05] MEDS: PIPER-TAZO 3.375 GM IV (PMX) 100 ML IVPB SCH ×2 (00:26→05:52)
[2018-07-05] MEDS: SOD CHLORIDE 0.9% 1,000 ML IV SCH ×2 (00:27→08:01)
[2018-07-05 02:00] VITALS: BP 114/63; PULSE 79; RESP 18
--- NOTE | 2018-07-05 04:52 | NUR ---
END OF SHIFT NOTE: PATIENT IS A AND O X 4; NOT IN DISTRESS. VS IS WNL; ALL MEDICATIONS HAVE BEEN GIVEN ORDERED AND PRN; ALL NEEDS ATTENDED; CALL LIGHT WITHIN REACH ; WILL ENDORSE TO THE DAY SHIFT RN
[2018-07-05 05:00] VITALS: BP 125/69; PULSE 78; RESP 18
--- NOTE | 2018-07-05 10:15 | PDOCDIS ---
Discharge Instructions CONDITION [id number] Patient Condition: [id number] Stable HOME CARE INSTRUCTIONS: [id number] Diet Instructions: [id number] Regular FOLLOW UP/APPOINTMENTS Follow-up Plan Follow-up with Dr. Mtz in 1 week. [address] [place] [address] Office Post operative Instructions *Do not lift anything more than 25 pounds for 6 to 8 weeks *Do not swim or take hot tub bath for 2weeks *Remove dressing and May shower-Use mild soap around site and pat dry *If you notice any oozing, bleeding or other drainage or having fever or chills from site please contact Surgeon's office-If unable to get office, you may go to nearest emergency room NOREEN ZAPATA NP Jul 05, 2018 10:15
[2018-07-05] MEDS ORDERED: AMOX1TAB10 PO (10:18)
[2018-07-05] MEDS ORDERED: DOCU-144 PO (10:18)
[2018-07-05] MEDS ORDERED: HYDR-4011 PO (10:18)
--- NOTE | 2018-07-05 10:23 | DS ---
Date/Time of Note Date/Time of Note DATE: 07/05/18 TIME: 10:21 Discharge Summary Admission/Discharge Info Admit Date/Time Jul 04, 2018 at 02:05 Discharge Date/Time Discharge Diagnosis 1. Acute appendicitis with localized peritonitis. -Status post laparoscopic appendectomy 07/03/2018 2. Obesity with BMI 32.1 Patient Condition: Stable Consults Dr. Mtz, surgery Procedures 07/04/2018. CT abdomen and pelvis without contrast IMPRESSION: 1. Diffusely thickened appendix measuring up to 10 mm with trace periappendiceal inflammatory changes consistent with early acute appendicitis. 2. Minimal colonic diverticulosis. 07/04/2018. Laparoscopic appendectomy. Hospital Course 27-year-old obese male with no past medical history admitted with acute appendicitis. Patient was given broad-spectrum antibiotics and he underwent laparoscopic appendectomy on 07/03/2018. Patient did well postoperatively. There was no leukocytosis, fever and incision site remained intact. He was tolerating diet as well. Patient was counseled on weight reduction secondary to obesity. At this time, patient is cleared from a surgical standpoint for discharge with outpatient follow-up. In light of no place peritonitis, he was prescribed with 5-day on Augmentin on discharge. Approximately 60 m spent on coordinating the discharge on this patient. Patient is seen in collaboration with Dr. Katz. Home Meds Active Scripts Docusate Sodium* (Colace*) 100 Mg Capsule, 100 MG PO DAILY, #30 CAP Prov:NOREEN ZAPATA V. KEEL[employer]YGRAPH OPERATOR 07/05/18 Amoxicillin/Potassium Clav (Amox-Clav 875-125 mg Tablet) 875-125 mg Tab, 1 TAB PO BID for 7 Days, #14 TAB Prov:NOREEN ZAPATA V. KEELER [employer]GRAPH OPERATOR 07/05/18 Discontinued Scripts Ondansetron HCl (Zofran) 4 Mg/5 Ml Solution, 4 MG PO Q6 PRN for NAUSEA, #30 Prov:REYES SALCIDO 08/23/17 Amoxicillin/Potassium Clav (Amox-Clav 875-125 mg Tablet) 875-125 mg Tab, 1 TAB PO BID, #20 TAB Prov:REYES SALCIDO 08/23/17 Hydrocodone/Acetaminophen (Bryson 5-325 Tablet) 1 Each Tablet, 1 EACH PO Q4 PRN for PAIN, #20 TAB Prov:REYES SALCIDO 08/23/17 Dicyclomine HCl (Dicyclomine HCl) 10 Mg Capsule, 10 MG PO QID, #20 CAP Prov:OLY AMEZCUA 04/26/15 Follow-up Plan Follow-up with Dr. Mtz in 1 week. [id number] [place] [address] Office Post operative Instructions *Do not lift anything more than 25 pounds for 6 to 8 weeks *Do not swim or take hot tub bath for 2weeks *Remove dressing and May shower-Use mild soap around site and pat dry *If you notice any oozing, bleeding or other drainage or having fever or chills from site please contact Surgeon's office-If unable to get office, you may go to nearest emergency room Primary Care Provider Not On Staff Doctor Pending Labs Laboratory Tests Test 07/05/18 04:37 White Blood Count 8.5 10^3/ul (4.8-10.8) Red Blood Count 4.41 10^6/ul (4.70-6.10) Hemoglobin 12.9 g/dl (14.0-18.0) Hematocrit 38.6 % (42.0-52.0) Mean Corpuscular Volume 87.5 fl (82.0-101.0) Mean Corpuscular Hemoglobin 29.3 pg (29.0-33.0) Mean Corpuscular Hemoglobin Concent 33.4 g/dl (32.0-37.0) Red Cell Distribution Width 12.3 % (11.5-14.5) Platelet Count 207 10^3/UL (140-415) Mean Platelet Volume 10.4 fl (7.4-10.4) Immature Granulocytes % 1.100 % (0.001-0.429) Neutrophils % 60.4 % (39.0-77.0) Lymphocytes % 30.0 % (15.0-51.0) Monocytes % 6.0 % (0.0-11.0) Eosinophils % 2.0 % (0.0-7.0) Basophils % 0.5 % (0.0-2.0) Nucleated Red Blood Cells % 0.0 /100WBC (0.0-0.0) Immature Granulocytes # 0.090 10^3/ul (0.0-0.031) Neutrophils # 5.1 10^3/ul (1.6-7.5) Lymphocytes # 2.5 10^3/ul (0.8-2.9) Monocytes # 0.5 10^3/ul (0.3-0.9) Eosinophils # 0.2 10^3/ul (0.0-0.5) Basophils # 0.0 10^3/ul (0.0-0.1) Nucleated Red Blood Cells # 0.0 10^3/ul (0.0-0.0) Sodium Level 139 mmol/L (135-144) Potassium Level 4.5 mmol/L (3.5-5.1) Chloride Level 100 mmol/L (97-110) Carbon Dioxide Level 28 mmol/L (21-31) Anion Gap 11 (5-13) Blood Urea Nitrogen 10 mg/dl (7-20) Creatinine 1.05 mg/dl (0.61-1.24) Est Glomerular Filtrat Rate mL/min > 60 mL/min (>60) Glucose Level 98 mg/dl (70-220) Hemoglobin A1c 5.2 % (0-5.9) Calcium Level 8.8 mg/dl (8.4-10.2) Magnesium Level 1.9 mg/dl (1.7-2.5) Total Bilirubin 0.7 mg/dl (0.2-1.3) Direct Bilirubin 0.00 mg/dl (0.00-0.20) Indirect Bilirubin 0.7 mg/dl (0-1.1) Aspartate Amino Transf (AST/SGOT) 27 IU/L (15-46) Alanine Aminotransferase (ALT/SGPT) 64 IU/L (13-69) Alkaline Phosphatase 45 IU/L (42-121) Total Protein 6.7 g/dl (6.1-8.1) Albumin 3.7 g/dl (3.3-4.9) Globulin 3.00 g/dl (1.3-3.2) Albumin/Globulin Ratio 1.23 Triglycerides Level 129 mg/dl (0-149) Cholesterol Level 142 mg/dl (100-200) LDL Cholesterol, Calculated 69 mg/dl HDL Cholesterol 47 mg/dl (30-63) Cholesterol/HDL Ratio 3.0 RATIO Thyroid Stimulating Hormone (TSH) 1.520 MIU/L (0.465-4.680) NOREEN ZAPATA NP Jul 05, 2018 10:23
[2018-07-05] MEDS ORDERED: WORK NOTE (10:27)
--- NOTE | 2018-07-05 12:49 | NUR ---
RN NOTE: PATIENT STABLE FOR DISCHARGE, NO C/O PAIN AT THIS TIME, TOLERATING DIET WELL, LAP SITES x 3 C/D/I, ALL INSTRUCTIONS, PHS, TEACHING AND PRESCRIPTIONS FOR HOME GIVEN, INSTRUCTED TO FOLLOW UP WITH DR. ESPINO IN 1 WEEK, PATIENT VERBALIZED UNDERSTANDING, PATIENT DISCHARGED VIA WHEELCHAIR BY VOLUNTEER.
== END 2018-07-05 12:40 | disposition home or self-care (01) | DRG 343 ==
LOC: E/R 00:02 → MS1 02:05 → EDBEDREQ 02:08
PROVIDERS: ADMIT Family Medicine; ATTEND Family Medicine
PROC: 0DTJ4ZZ Resection of Appendix, Percutaneous Endoscopic Approach (ICD-10-PCS; principal; 2018-07-04 05:30)
DX: K35.30 Acute appendicitis with localized peritonitis, without perforation or gangrene (principal); E66.9 Obesity, unspecified; Z68.32 Body mass index [BMI] 32.0-32.9, adult; Z71.3 Dietary counseling and surveillance; R11.10 Vomiting, unspecified
CPT/HCPCS: 36415; 74176; 80053; 80061; 81003; 83036; 83605; 83690; 83735; 84443; 85025; 85610; 85730; 87070; 87075; 88304; 96361; 96374; 96375; J0690; J1170; J2250; J2270; J2405; J2543; J7030